=== PATIENT | female | born 1965 | race Caucasian/White ===

== ENCOUNTER 2022-10-16 13:34 | Emergency (ER) | payer MEDICARE, OTHER, SELFPAY ==
[2022-10-16 13:48] VITALS: BP 106/70; PULSE 81; RESP 18; TEMP 36.9; O2SAT 96; BMI 21.0
--- NOTE | 2022-10-16 14:23 | ED_ITS ---
HPI - Arrhythmia/Palpitations General Chief Complaint: Arrhythmia/Palpitations Stated Complaint: Irregular heartrate Time Seen by Provider: 10/16/22 13:54 History of Present Illness HPI narrative: This 57-year-old female was at clinic for a checkup and reported some palpitations over the past couple weeks. She did have a complete blood count and thyroid check done there with normal findings. She was sent here for further evaluation. She does report some occasional lightheadedness and very mild chest discomfort. She states that she has good exercise tolerance. She does not have any nausea, vomiting, shortness of breath, or diaphoresis. She has no cardiac risk factors except for positive family history. She arrives with frequent PVCs sometimes in a pattern of trigeminy. Related Data Home Medications Medication Instructions Recorded Confirmed azelastine 137 mcg (0.1 %) nasal ml intranasal 09/06/22 09/06/22 spray aerosol escitalopram oxalate 10 mg tablet 10 mg PO 09/06/22 09/06/22 fluticasone propionate 50 g intranasal 09/06/22 09/06/22 mcg/actuation nasal spray,suspension lamotrigine 100 mg tablet 100 mg PO 09/06/22 09/06/22 rosuvastatin 10 mg tablet 10 mg PO 09/06/22 09/06/22 sumatriptan succinate 100 mg tablet ea PO 09/06/22 09/06/22 trazodone 100 mg tablet 100 mg PO 09/06/22 09/06/22 trazodone 50 mg tablet 50 mg PO 09/06/22 09/06/22 valacyclovir 500 mg tablet 500 mg PO 09/06/22 09/06/22 Previous Rx's Medication Instructions Recorded amoxicillin 875 mg-potassium 1 tab PO BID #14 tabs 09/06/22 clavulanate 125 mg tablet Allergies Allergy/AdvReac Type Severity Reaction Status Date / Time Unable to Assess Allergy Verified 09/06/22 12:17 Review of Systems Status of ROS: Reports: 10 or more systems reviewed and unremarkable except as noted in History and below Narrative: Constitutional: No fevers, no weight gain or loss. Eyes: No discharge. No vision changes. HENT: No congestion, no sore throat, no ear pain. Cardiovascular: Palpitations as described above. Respiratory: No shortness of breath, no wheezes, no cough. Gastrointestinal: No abdominal pain, no vomiting, no diarrhea. Genitourinary: No dysuria, no hematuria. Musculoskeletal: Normal range of motion. Skin: No rashes, no pruritis. Neurological: No dizziness, weakness, sensory change, speech change. Endo/Heme/Allergies: No bruising or bleeding. No polydipsia. Pysch: no suicidality, no anxiety, no insomnia. All other systems reviewed and are negative. [facility] Medical History (Updated 10/16/22 @ 15:59 by Siddhartha Donohue MD) Cough Upper respiratory infection Social History Smoking Status: Never smoker Do you use any of these nicotine containing products: None Second hand tobacco smoke exposure: No How often do you have a drink containing alcohol: monthly or less How many standard drinks containing alcohol do you have on a typical day: 1 or 2 How often do you have six or more drinks on one occasion: Never AUDIT-C Alcohol total score: 1 Non-prescribed substance use: denies use service: No Exam Narrative: Exam Narrative: Constitutional: Well-developed, well-nourished, no acute distress. HEENT: Normocephalic, atraumatic. Neck: Normal range of motion. Nontender. Supple. Heart: Regular with frequent premature beats. No murmurs. Normal rate. Intact distal pulses. Lungs: Clear to auscultation. No chest discomfort. No wheezes, rhonchi, or rales. Abdomen: Normal bowel sounds. Nontender. No rebound tenderness. Genitalia: Deferred. Back: No midline tenderness. Normal range of motion. Extremities: Normal range of motion. No injury. Skin: Intact. No rash. Warm. No erythema or pallor. Neurologic: No altered sensation. No weakness. Alert and oriented. Psychiatric: No suicidality. No anxiety or depression. No insomnia. Nursing notes and vitals signs are reviewed. Const: Vital Signs, click to edit/add: Vital Signs - 24 hr 10/16/22 13:48 Temperature 98.5 F Pulse Rate [Pulse Oximeter] 81 Respiratory Rate 18 Blood Pressure [Le ft Upper Arm] 106/70 Pulse Oximetry 96 Oxygen Delivery Me thod Room Air Course Vital Signs Vital signs: Initial Vital Signs Temperature 98.5 F 10/16/22 13:48 Temperature Source Temporal Artery Scan 10/16/22 13:48 Pulse Rate 81 10/16/22 13:48 Pulse Rhythm 10/16/22 13:48 Respiratory Rate 18 10/16/22 13:48 Blood Pressure 106/70 10/16/22 13:48 Blood Pressure Mean 82 10/16/22 13:48 Blood Pressure Position Supine 10/16/22 13:48 Pulse Oximetry 96 10/16/22 13:48 Oxygen Delivery Method 10/16/22 13:48 Vital Signs Temperature 98.5 F 10/16/22 13:48 Pulse Rate 81 10/16/22 13:48 Respiratory Rate 18 10/16/22 13:48 Blood Pressure 106/70 10/16/22 13:48 Pulse Oximetry 96 10/16/22 13:48 Oxygen Delivery Method 10/16/22 13:48 Temperature 98.5 F 10/16/22 13:48 Pulse Rate 81 10/16/22 13:48 Respiratory Rate 18 10/16/22 13:48 Blood Pressure 106/70 10/16/22 13:48 Pulse Oximetry 96 10/16/22 13:48 Oxygen Delivery Method 10/16/22 13:48 MDM - Arrhythmia/Palpitations MDM Narrative Medical decision making narrative: This patient comes in from clinic by recommendation to come here for evaluation of some palpitations. On the heart monitor she is showing normal sinus rhythm with frequent PVCs. Sometimes he has come in a pattern of trigeminy or even bigeminy. She had labs done earlier today at clinic which included complete blood count and thyroid level. She reports that these return with normal results. Basic metabolic panel, magnesium, and troponin results here returned with normal findings also. Her EKG does show normal sinus rhythm without any ST or T-wave abnormalities. She does have frequent PVCs. I did explain the mechanism behind PVCs and indicated that this is generally benign phenomenon. She states that she does take 1 dose of caffeine daily. She is not on any new medications except she reports that she is taking a medicine for the past couple months to lower her blood sugar. She is not sure of the name of the medicine but thinks that it may be metformin. She has a remote history of a brain tumor that was resected from her. She is on some anti seizure medicines but states that these are nothing new for her. She is okay to return home. I did recommend a Holter monitor or a Zio patch for further evaluation. Her blood pressure is typically around 95-105 so she is not a good candidate for a rate- controlling medicines such as a beta-barry. She is satisfied to see that these results returned with reassuring findings and wishes to return home. Lab Data Labs: Lab Results 10/16/22 10/16/22 Range/Units 14:35 14:35 Sodium 144 (135-149) mmol/L Potassium 4.1 (3.6-5.1) mmol/L Chloride 108 (96-114) mmol/L Carbon Dioxide 28 (20-32) mmol/L BUN 11 (7-30) mg/dL Creatinine 0.7 (0.5-1.5) mg/dL Estimated Creat Clear 80.55 Estimated GFR 100 ml/min Glucose 106 (60-115) mg/dL Calcium 9.4 (8.4-10.6) mg/dL Magnesium 2.2 (1.5-2.6) mg/dL POC Troponin I 0.00 L (0.01-0.04) ng/ml ECG Data Attestation: I personally reviewed and interpreted this ECG as follows: Interpretation: Normal sinus rhythm with occasional PVCs. Rate is 73 beats per minute. There are no ST or T-wave abnormalities. Discharge Plan Discharge Clinical Impression: Palpitations, Ventricular premature beats Patient Disposition: Home, Self-Care Condition: Stable Additional Instructions: Continue current plans. Heart monitor shows evidence of frequent premature ventricular contractions (PVCs) sometimes in a pattern of trigeminy or bigeminy. Follow up with MD or cardiology clinic if persistent or recurring symptoms happen. Return if worsening. Prescriptions: No Action azelastine 137 mcg (0.1 %) aerosol,spray intranasal Label Comments: SPRAY TWO PUFFS IN THE AFFECTED NOSTRIL TWICE A DAY NEEDED escitalopram oxalate 10 mg tablet 10 mg PO Label Comments: TAKE ONE TABLET BY MOUTH EVERY MORNING trazodone 100 mg tablet 100 mg PO Label Comments: TAKE ONE TABLET BY MOUTH AT BEDTIME fluticasone propionate 50 mcg/actuation spray,suspension intranasal Label Comments: USE 2 SPRAYS IN EACH NOSTRIL ONCE A DAY valacyclovir 500 mg tablet 500 mg PO Label Comments: TAKE ONE TABLET BY MOUTH EVERY DAY rosuvastatin 10 mg tablet 10 mg PO lamotrigine 100 mg tablet 100 mg PO Label Comments: TAKE 1.5 TABLETS BY MOUTH TWO TIMES A DAY trazodone 50 mg tablet 50 mg PO Label Comments: TAKE ONE TABLET BY MOUTH AT BEDTIME sumatriptan succinate 100 mg tablet PO Label Comments: TAKE 1 TABLET BY MOUTH FOR MODERATE TO SEVERE HEADACHE. MAY REPEAT IN 2 HOURS. MAX OF 2 TABLETS IN 24 HOURS. amoxicillin-pot clavulanate 875-125 mg tablet 1 tab PO BID Qty: 14 0RF Rx Instructions: take one pill twice daily with food for 7 days. Follow Up/Referrals: Provider,Not a Local [Primary Care Provider] - Stand Alone Forms: [employer] Info Instructions
[2022-10-16 15:03] LABS: Chloride* 108 mmol/L (96-114); Potassium* 4.1 mmol/L (3.6-5.1); Sodium* 144 mmol/L (135-149)
[2022-10-16 15:06] LABS: Creatinine* 0.7 mg/dL (0.5-1.5); Est. Creatinine Clearance* 80.55; Estimated Glomerular Filt Rate 100 ml/min
[2022-10-16 15:07] LABS: Blood Urea Nitrogen* 11 mg/dL (7-30); Calcium* 9.4 mg/dL (8.4-10.6); Carbon Dioxide* 28 mmol/L (20-32); Glucose* 106 mg/dL (60-115); Magnesium* 2.2 mg/dL (1.5-2.6)
[2022-10-16 15:54] VITALS: BP 95/60; PULSE 72; RESP 16; O2SAT 97
== END 2022-10-16 16:29 | disposition home or self-care (01) ==
PROVIDERS: Emergency Provider Emergency Medicine Emergency Medical Services
DX: R00.2 Palpitations (principal); I49.3 Ventricular premature depolarization
CPT/HCPCS: 36415; 80048; 83735; 84484; 93005; 99284